=== PATIENT | female | born 1965 | race Two or more races ===

== ENCOUNTER 2019-06-12 04:40 | Emergency (ER) | payer MEDICAID ==
[~2019-06-12] VITALS: Ht 160 cm; Wt 49.9 kg
--- NOTE | 2019-06-12 05:00 | NUR ---
PT [id number]. AAOX4. C/O COUGH STARTED 30MIN COLLEGE INTERN WITH BLOOD TINGED SPUTUM NOTED. PT TACHYCARDIC UPON ARRIVAL, SAT 88% ON ROOM AIR, PALCED ON NC 2L, SAT 94. PT STATED SHE STARTED CHEMO THERAPY TODAY. IV PORT NOTED ON R CHEST, PLACED ON MONITOR AND PULSE OX. VSS, AWAITING MD ORDERS.
[2019-06-12 05:01] LABS: BASOPHILS # (AUTO) 0.1 /CMM (0.0-0.2); BASOPHILS % (AUTO) 0.6 % (0.0-2.0); EOSINOPHILS % (AUTO) 0.3 % (0.0-6.0); HEMATOCRIT 32 % (33-45); HEMOGLOBIN 10.4 g/dL (11.5-14.8); LYMPHOCYTES # (AUTO) 1.1 /CMM (0.8-4.8); LYMPHOCYTES % (AUTO) 10.4 % (20.0-44.0); MEAN CORPUSCULAR HGB CONC 32 g/dl (31.0-36.0); MEAN CORPUSCULAR VOLUME 85 fL (82-100); MONOCYTES # (AUTO) 0.5 /CMM (0.1-1.30); MONOCYTES % (AUTO) 4.4 % (2.0-12.0); NEUTROPHILS # (AUTO) 8.9 /CMM (1.8-8.9); NEUTROPHILS % (AUTO) 84.3 % (43.0-81.0); PLATELET COUNT (AUTO) 729 /CMM (150-450); RED BLOOD CELL COUNT(AUTO) 3.83 MIL/uL (4.0-5.2); WHITE BLOOD COUNT (AUTO) 10.5 K/uL (4.3-11.0)
[2019-06-12 05:08] LABS: CALCIUM, SERUM 9.3 mg/dL (8.5-10.1); CARBON DIOXIDE 23 mmol/L (21-32); CHLORIDE 104 mmol/L (98-107); CREATININE 0.6 mg/dL (0.6-1.3); GLUCOSE 160 mg/dL (74-106); POTASSIUM 3.8 mmol/L (3.5-5.1); SODIUM SERUM 141 mmol/L (136-145)
[2019-06-12 05:16] LABS: UREA NITROGEN, BLOOD 13 mg/dL (7-18)
[2019-06-12] MEDS ORDERED: IOHEXOL-350 100 ML VIAL IV ONE (05:20)
--- NOTE | 2019-06-12 05:20 | NUR ---
BROUGHT TO CT
[2019-06-12] MEDS ORDERED: CT SWABBABLE VALVE TRANS SET 1 EA INFUS.SET MC ONE (05:21)
[2019-06-12] MEDS ORDERED: IV NS 0.9% 250 ML IV ONE (05:21)
--- NOTE | 2019-06-12 05:38 | NUR ---
BROUGHT BACK FROM CT
--- NOTE | 2019-06-12 06:47 | NUR ---
Patient is resting comfortably in bed with eyes closed. Easily aroused. VSS.
--- NOTE | 2019-06-12 07:32 | NUR ---
CONTACTED [facility] [employer] ONCOLOGIST . DR. SHAKIRA SAINZ WILL CALL BACK
--- NOTE | 2019-06-12 07:49 | NUR ---
PATIENT A/OX4, PLACED ON O2 AT 2LPM VIA NC WITH SPO2 OF 98%. KEPT COMFORTABLE, NEEDS ATTENDED.
--- NOTE | 2019-06-12 08:27 | NUR ---
Patient does not wish to proceed with medical care recommended by Dr. Vega. Patient given information related to possible complications, up to and including , which could occur as a result of leaving the hospital at this time. Patient verbalizes understanding of risks involved due to leaving against medical advice. Patient has signed AMA form. IV removed. Catheter intact and site benign. Pressure and 4x4 applied to site. No bleeding noted.
[2019-06-12 08:30] VITALS: BP 118/72
== END 2019-06-12 08:30 | disposition left against medical advice (07) ==
LOC: ER 04:42
DX: J93.9 Pneumothorax, unspecified (principal); R00.0 Tachycardia, unspecified; I10 Essential (primary) hypertension; Z85.42 Personal history of malignant neoplasm of other parts of uterus; Z88.1 Allergy status to other antibiotic agents
CPT/HCPCS: 36415; 71045; 71275; 80048; 84484; 85025; 93005; 99291; J7050; Q9967